=== PATIENT | female | born 1995 | race Caucasian/White ===

== ENCOUNTER 2018-06-20 20:24 | Emergency (ER) | payer MEDICAID ==
[~2018-06-20] VITALS: Ht 160 cm; Wt 92.8 kg
[2018-06-20 21:02] VITALS: Ht 160 cm; Wt 92.8 kg
[2018-06-21 00:53] VITALS: BP 123/67
== END 2018-06-21 00:53 | disposition home or self-care (01) ==
LOC: ED 20:24
DX: G43.909 Migraine, unspecified, not intractable, without status migrainosus (principal); R55 Syncope and collapse
CPT/HCPCS: J0780; J1200; J7030